=== PATIENT | female | born 1940 | race Hispanic/Latino ===

== ENCOUNTER 2017-11-15 13:39 | Emergency (ER) | payer OTHER, MEDICARE ==
[2017-11-15 13:40] VITALS: BMI 28.8
[2017-11-15 14:53] VITALS: BP 159/84; PULSE 70; RESP 18; TEMP 98.5; O2SAT 97
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
== END 2017-11-15 14:42 | disposition left against medical advice (07) ==
LOC: H.ER 13:39
DX: R51 Headache (principal); M54.2 Cervicalgia; V43.61XA Car passenger injured in collision with sport utility vehicle in traffic accident, initial encounter; Y92.410 Unspecified street and highway as the place of occurrence of the external cause; I10 Essential (primary) hypertension